=== PATIENT | female | born 1970 | race Caucasian/White ===

== ENCOUNTER 2017-04-03 16:28 | Emergency (ER) | payer OTHER ==
[~2017-04-03] VITALS: Ht 170.2 cm; Wt 80.0 kg
[2017-04-03 16:29] VITALS: BP 138/97
[2017-04-03] MEDS ORDERED: HTN (16:55)
[2017-04-03] MEDS ORDERED: LOSA25TA5 PO (16:55)
[2017-04-03] MEDS ORDERED: DEPRESSION (16:55)
[2017-04-03] MEDS ORDERED: HYDROcodone/APAP 5/325 TABLET ONE (17:38)
[2017-04-03] MEDS ORDERED: HYDROcodone/APAP 5/325 TABLET PO ONE (18:00)
== END 2017-04-03 17:56 | disposition home or self-care (01) ==
LOC: ED 17:50
DX: S83.511A Sprain of anterior cruciate ligament of right knee, initial encounter (principal); X50.1XXA Overexertion from prolonged static or awkward postures, initial encounter; Y93.89 Activity, other specified; Y92.89 Other specified places as the place of occurrence of the external cause; Y99.9 Unspecified external cause status
CPT/HCPCS: 99284

== ENCOUNTER 2017-04-28 05:38 | Day surgery (SDC) | payer OTHER ==
[2017-04-26 15:39] LABS: ASPARTATE AMINO TRANSFERASE 21 U/L (15-37); BLOOD UREA NITROGEN 7 mg/dL (7-18)
[~2017-04-28] VITALS: Ht 167.6 cm; Wt 86.4 kg
[~2017-04-28 05:38] MED LIST: AMLO5TAB2 PO; DEPRESSION; DESV100T PO; HTN; LOSA100T6 PO; LOSA25TA5 PO
[2017-04-28] MEDS ORDERED: BUPIVACAINE/PF-EPI 0.25% 1:200K ONE (06:01)
[2017-04-28] MEDS ORDERED: LIDOCAINE/PF 1%-EPI 1:200K, 30ML ONE (06:01)
[2017-04-28] MEDS ORDERED: LIDOCAINE 1%, 2ML ONE (06:25)
[2017-04-28] MEDS ORDERED: MIDAZOLAM 1 MG/ML, 2ML ONE (06:27)
[2017-04-28] MEDS ORDERED: FENTANYL PF 250 MCG/5ML ONE (06:27)
[2017-04-28 06:29] LABS: HCG UR OBC PASS
[2017-04-28] MEDS ORDERED: LACTATED RINGERS 1,000 ML IV SCH (06:33)
[2017-04-28] MEDS ORDERED: CEFAZOLIN 1,000 MG ONE (06:49)
[2017-04-28] MEDS ORDERED: DEXAMETHASONE 4 MG/ML, 5ML ONE (06:49)
[2017-04-28] MEDS ORDERED: ONDANSETRON 2MG/ML, 2ML ONE (06:49)
[2017-04-28] MEDS ORDERED: PROPOFOL 10 MG/ML, 20ML ONE (06:49)
[2017-04-28] MEDS ORDERED: BUPIVACAINE/PF-EPI 0.25% 1:200K INFIL ONE (07:00)
[2017-04-28] MEDS ORDERED: LIDOCAINE 1%, 2ML SQ PRN (07:00)
[2017-04-28] MEDS ORDERED: FENTANYL PF 100 MCG/2ML IV PRN (07:00)
[2017-04-28] MEDS ORDERED: ACETAMINOPHEN 325 MG TABLET PO PRN (07:00)
[2017-04-28] MEDS ORDERED: HYDROmorphone 1 MG/ML, 1ML IV PRN (07:00)
[2017-04-28] MEDS ORDERED: ONDANSETRON 2MG/ML, 2ML IVPush PRN (07:00)
[2017-04-28] MEDS ORDERED: OXYcodone 5 MG/5 ML ORAL.SOL UDC PO PRN (07:00)
[2017-04-28] MEDS ORDERED: LABETALOL 5MG/ML, 20ML IV PRN (07:00)
[2017-04-28] MEDS ORDERED: MEPERIDINE/PF 25MG/0.5ML IVPush PRN (07:00)
[2017-04-28] MEDS ORDERED: LIDOCAINE 1%-EPI 1:100K, 30ML INFIL ONE (07:01)
[2017-04-28] MEDS ORDERED: Desvenlafaxine Succinate** (Pristiq Er**) 100 MG) PO SCH (09:00)
[2017-04-28] MEDS ORDERED: LOSARTAN 50MG TABLET PO SCH (09:00)
[2017-04-28] MEDS ORDERED: AMLODIPINE 5 MG TABLET PO SCH (09:00)
== END 2017-04-28 08:55 | disposition home or self-care (01) ==
LOC: OUT 05:38
PROVIDERS: ATTEND Orthopaedic Surgery
DX: M23.211 Derangement of anterior horn of medial meniscus due to old tear or injury, right knee (principal); M23.261 Derangement of other lateral meniscus due to old tear or injury, right knee; M23.41 Loose body in knee, right knee; M94.261 Chondromalacia, right knee; M17.11 Unilateral primary osteoarthritis, right knee; I10 Essential (primary) hypertension; Z72.89 Other problems related to lifestyle
CPT/HCPCS: 29880; 36415; 80053; 81025; J0690; J1100; J2250; J2405; J2704; J3010; J3490; J7120

== ENCOUNTER 2017-07-03 02:52 | Emergency (ER) | payer OTHER ==
[~2017-07-03] VITALS: Ht 167.6 cm; Wt 91.0 kg
[2017-07-03 02:53] VITALS: BP 124/90
[2017-07-03 04:29] LABS: BLOOD UREA NITROGEN 3 mg/dL (7-18)
[2017-07-03 04:57] LABS: HEMATOCRIT 28.9 % (34.6-47.8); HEMOGLOBIN 9.2 g/dL (11.7-16.4); WHITE BLOOD COUNT 4.8 x10^3/uL (3.4-10)
[2017-07-03 04:58] LABS: DIFF TOTAL CELLS COUNTED 100 CELL DIFF
[2017-07-03 05:00] LABS: VERIFY COUNTS? YES
[2017-07-03 05:02] LABS: ANISOCYTOSIS 1+; OVALOCYTES 1+
[2017-07-03 05:03] LABS: LARGE PLATELETS 1+
[2017-07-03] MEDS ORDERED: IBUPROFEN 200 MG TABLET ONE (05:17)
[2017-07-03] MEDS ORDERED: ACETAMINOPHEN 325 MG TABLET ONE (05:20)
[2017-07-03] MEDS ORDERED: IBUPROFEN 200 MG TABLET PO ONE (05:30)
[2017-07-03] MEDS ORDERED: ACETAMINOPHEN 325 MG TABLET PO ONE (05:30)
== END 2017-07-03 05:32 | disposition left against medical advice (07) ==
LOC: ED 04:21
DX: L52 Erythema nodosum (principal); R53.1 Weakness; I10 Essential (primary) hypertension; Z86.718 Personal history of other venous thrombosis and embolism
CPT/HCPCS: 36415; 80048; 82040; 85025; 85610; 85730; 99284

== ENCOUNTER 2020-07-27 00:16 | Emergency (ER) | payer OTHER ==
[~2020-07-27] VITALS: Ht 170.2 cm; Wt 75.8 kg
[~2020-07-27 00:16] MED LIST changes: +AMLO-150 PO; -AMLO5TAB2 PO; +LOSA100T14 PO; -LOSA100T6 PO; +LOSA25TA25 PO; -LOSA25TA5 PO
[2020-07-27 00:17] VITALS: BP 157/111
[2020-07-27] MEDS ORDERED: DULO60CA7 PO (00:22)
[2020-07-27] MEDS ORDERED: ACETAMINOPHEN 325 MG TABLET ONE (01:19)
[2020-07-27] MEDS ORDERED: ACETAMINOPHEN 325 MG TABLET PO ONE (01:30)
[2020-07-27] MEDS ORDERED: IBUPROFEN 600 MG TABLET PO ONE (01:30)
== END 2020-07-27 02:03 | disposition home or self-care (01) ==
LOC: ED 01:30
DX: S83.511A Sprain of anterior cruciate ligament of right knee, initial encounter (principal); Z90.89 Acquired absence of other organs; Z90.49 Acquired absence of other specified parts of digestive tract; Z87.891 Personal history of nicotine dependence; Z86.718 Personal history of other venous thrombosis and embolism; W18.30XA Fall on same level, unspecified, initial encounter; Y93.89 Activity, other specified; Y92.89 Other specified places as the place of occurrence of the external cause; Y99.8 Other external cause status
CPT/HCPCS: 29505; 99283

== ENCOUNTER 2021-04-10 14:44 | Emergency (ER) | payer MEDICAID, OTHER ==
[~2021-04-10] VITALS: Ht 170.2 cm; Wt 72.0 kg
[~2021-04-10 14:44] MED LIST changes: +BUPR100T11 PO; +CHOL10003 PO; +CYAN10002 PO; +DULO60CA7 PO; +FLUD0.1T PO; +FOLI1TAB32 PO; +MECL-101 PO; +NITR100C6 PO; +THIA100T67 PO
--- NOTE | 2021-04-10 15:06 | NUR ---
PATIENT WHEELED BACK FROM TRIAGE WITH CHIEF C/O ABD PAIN X4 DAYS. PER PATIENT PAIN STARTED RADIATED INTO BOTH LEGS 2 DAYS AGO, AND THIS MORNING SHE WOKE UP WITH BILATERAL ARM PAIN. PATIENT DENIES N/V/D, DENIES FEVER. PATIENT ALSO REPORTS LOSS OF BALANCE X4 DAYS, DENIES CHEST PAIN. A&O, NADN, CONNECTED TO MONITORS, VSS, CALL LIGHT WITHIN REACH.
--- NOTE | 2021-04-10 15:20 | NUR ---
ERMD AT BEDSIDE FOR EVALUATION.
--- NOTE | 2021-04-10 15:37 | NUR ---
PATIENT WHEELED TO BATHROOM FOR URINE SAMPLE.
--- NOTE | 2021-04-10 15:44 | NUR ---
PATIENT WHEELED BACK TO [facility], CONNECTED TO MONITORS, VSS, SIDE RAILS UP X2, CALL LIGHT WITHIN REACH. URINE COLLECTED AND WALKED TO LAB.
[2021-04-10 15:48] LABS: BASOPHILS % (AUTO) 1 % (0-1); EOSINOPHILS % (AUTO) 0 % (1-7); LYMPHOCYTES % (AUTO) 8 % (22-44); MEAN CORPUSCULAR HEMOGLOBIN 34.2 pg (27.0-34.8); MEAN CORPUSCULAR HGB CONC 33.9 g/dL (32.4-35.8); MEAN PLATELET VOLUME 9.1 fL (7.4-10.4); MONOCYTES % (AUTO) 10 % (2-9); NEUTROPHILS % (AUTO) 81 % (42-75); PLATELET COUNT 102 x10^3/uL (130-400); RED BLOOD COUNT 4.08 x10^6/uL (3.82-5.3); RED CELL DISTRIBUTION WIDTH 16.6 % (9.6-15.2)
--- NOTE | 2021-04-10 15:49 | NUR ---
PATIENT TO CT SCAN.
[2021-04-10 15:51] LABS: MICROSCOPIC INDICATED
[2021-04-10 15:53] LABS: ALBUMIN 3.4 g/dL (3.4-5.0); ANION GAP 11 mmol/L (5-15); CALCIUM 9.1 mg/dL (8.5-10.1); CHLORIDE 95 mmol/L (98-107); CREATININE 1.15 mg/dL (0.55-1.02)
[2021-04-10 16:20] LABS: MD SCAN
[2021-04-10] MEDS ORDERED: SODIUM CHLORIDE FLUSH 10ML SYR IVF ONE (16:30)
[2021-04-10] MEDS ORDERED: SODIUM CHLORIDE 0.9% 1,000ML IVBOLUS ONE (16:30)
[2021-04-10] MEDS ORDERED: CEFTRIAXONE 1,000 MG in DEXTROSE 5% 50 ML IVPB ONE (16:30)
[2021-04-10] MEDS ORDERED: POTASSIUM CHLORIDE 20 MEQ in SODIUM CHLORIDE 0.9% 250 ML IV ONE (16:30)
[2021-04-10] MEDS ORDERED: POTASSIUM CHLORIDE 20 MEQ TAB.ER.PRT PO ONE (16:30)
[2021-04-10] MEDS ORDERED: POTASSIUM CHLORIDE 20 MEQ TAB.ER.PRT ONE (16:34)
--- NOTE | 2021-04-10 16:37 | NUR ---
DOG [employer]ER OR TRAINER AT BEDSIDE FOR IV INSERTION.
[2021-04-10] MEDS ORDERED: PHENAZOPYRIDINE 200 MG TABLET ONE (16:49)
[2021-04-10] MEDS ORDERED: PHENAZOPYRIDINE 200 MG TABLET PO ONE (17:00)
--- NOTE | 2021-04-10 17:17 | NUR ---
DINNER TRAY PROVIDED TO PATIENT. WAITING FOR KCL TO FINISH RUNNING AND THEN PATIENT WILL BE DISCHARGED.
--- NOTE | 2021-04-10 17:59 | NUR ---
PATIENT RESTING IN GURNEY, WATCHING TV, NADN, CONNECTED TO MONITORS, VSS, CALL LIGHT WITHIN REACH. WAITING FOR IV KCL TO FINISH RUNNING.
--- NOTE | 2021-04-10 18:46 | NUR ---
REPORT FROM [facility]. PT RESTING WITH NO NEEDS AT THIS TIME. WAITING FOR POTASSIUM TO FINISH. CALL LIGHT IN REACH
--- NOTE | 2021-04-10 19:24 | NUR ---
FLUIDS DONE. PIV REMOVED. PT VERBALIZED UNDERSTANDING OF DISCHARGE INSTRUCTIONS. PT GETTING DRESSED.
[2021-04-10 19:27] VITALS: BP 103/74
== END 2021-04-10 19:29 | disposition home or self-care (01) ==
LOC: ED 14:53
DX: N30.00 Acute cystitis without hematuria (principal); R10.30 Lower abdominal pain, unspecified; E87.6 Hypokalemia; I10 Essential (primary) hypertension; Z90.49 Acquired absence of other specified parts of digestive tract
CPT/HCPCS: 36415; 74176; 80048; 81001; 82040; 83735; 85025; 87086; 93005; 96365; 96366; 96375; 99285; J0696; J3480; J7030; J7050